=== PATIENT | male | born 1965 | race Caucasian/White ===

== ENCOUNTER 2018-09-05 06:19 | Day surgery (SDC) | payer OTHER, SELFPAY ==
[2018-08-24 10:48] VITALS: BMI 30.2
[2018-09-05] VITALS (7 sets, daily range): BP systolic 109–135; BP diastolic 73–83; PULSE 70–95; RESP 12–16; TEMP 36.3–37.3; O2SAT 92–95; BMI 30.2
--- NOTE | 2018-09-05 | PATH_ITS ---
[facility] Accession Number: [id number] . 01 Material submitted: . hernia - HERNIA SAC AND CONTENTS . 02 Diagnosis: Hernia Sac, Biopsy: Consistent with hernia sac. MRV/09/07/2018 . 02 Electronically signed: . Alberta Watts MD, Pathologist NPI- [id number] . 01 Gross description: . Received in formalin, labeled hernia sac / contents, are multiple pieces of mishra-pink membranous and li-yellow fatty tissue (3.5 x 2.4 x 1.2 cm in aggregate). Backhoe Operator tissue submitted in cassette A1. ([id number]) /MRV . 02 Pathologist provided ICD-10: K45.8 . 02 CPT . 615955 Performed at: 01 [facility] [address] [id number] MD Jay Hebert MD Phone: [phone] Performed at: 02 [facility] [address] [place], [place] [id number] MD Alberta Watts MD Phone: [phone]
--- NOTE | 2018-09-05 07:27 | PM.PREOP ---
Pre-operative Note Interval Note History & Physical reviewed/Exam performed by Physician: Yes Changes to H&P: No
[2018-09-05] MEDS: CEFAZOLIN VIAL 3 GM in SODIUM CHLORIDE 0.9% 100 ML 200 ML IV (08:00)
--- NOTE | 2018-09-05 08:18 | SUR.OPER ---
Supine on padded OR bed, head on pillow, arms secured on padded arm boards at <90 degrees abduction, legs uncrossed, safety belt at thigh, tape over blanket over lower legs.
[2018-09-05] MEDS: BUPIVACAINE 0.25% W/ EPI 30 ML VIAL INJ (08:33)
--- NOTE | 2018-09-05 11:05 | P.OP_ITS ---
Operative Date/Time/Diagnoses Date of procedure: 09/05/18 Time of procedure: 09:00 Pre-op diagnosis: Umbilical Hernia Post-op diagnosis: same Procedure & Clinicians Procedure: Umbilical Hernia repair with mesh Same procedure as scheduled: Yes Indications: 53yo M with a fat-containing umbilical hernia which causes him pain. He would like it repaired and understands and all risks, benefits, and alternatives. Surgeon: Vanessa Tabler Click Yes if Unassisted: Yes Anesthesia Type: General Operative Notes Findings: fat containing umbilical hernia, defect 2cm Closure Type: primary Specimen(s): other (hernia sac and contents) Estimated Blood Loss (mL): 5 Procedure in detail: The patient was taken to the operating room and placed on the operating table in supine position then induced to an acceptable level of anesthesia. The abdomen was prepped and draped in usual sterile fashion. Using a 15 blade scalpel, an approximately 2cm incision was made just below the umbilicus. This was taken down through the subcutaneous tissue using electrocautery. The hernia sac was identified. It was opened and the peritoneal cavity was identified as well. The hernia was opened widely and then transected along its attachments to the fascia. The fascial defect measured approximately 2cm. The posterior aspect of the fascia was cleaned circumferentially. And all omental adhesions were taken down.The anterior aspect of the fascia was then cleaned approximately 2 cm in all directions. A 4.2cm x 4.2cm piece of V-patch mesh was chosen. The mesh was placed in an underlay fashion and secured to the fascia in an interrupted fashion using 0-Ethibond interrupted sutures. Each suture was marked with a hemostat. There was noted to be no tension on the repair, and there was no redundancy of the mesh. Once all sutures were placed and mesh placement was noted to be satisfactory, the sutures were then tied. The fascia was then closed over the mesh using 0-Ethibond sutures. Subcutaneous tissues were irrigated and dried. Hemostasis was obtained using electrocautery. The umbilical stalk was tacked down to the level of the fascia using a 3-0 Vicryl suture. The deep subcutaneous tissues were closed using 3-0 Vicryl in an interrupted fashion. The skin was then closed using 4-0 monocryl in a running fashion. The abdomen was cleaned and dried. Steri strips and a pressure dressing were placed over the incision. The patient was awakened and taken to the postanesthesia care uni t in stable condition. All counts were correct at the end of the procedure. Complications: none Condition: stable Disposition: PACU Plan for aftercare: home with
== END 2018-09-05 09:41 | disposition home or self-care (01) ==
PROVIDERS: Family Provider Family Medicine; PCP Family Medicine; Visit Provider Surgery
PROC: (CPT 49587; principal; 2018-09-05 07:45)
DX: K42.0 Umbilical hernia with obstruction, without gangrene (principal); K66.0 Peritoneal adhesions (postprocedural) (postinfection)
CPT/HCPCS: 49587; C1781; J0330; J0690; J1100; J2250; J2405; J2704; J3010

== ENCOUNTER → 2019-12-31 11:09 | Outpatient (CLI) | payer OTHER, SELFPAY ==
--- NOTE | 2019-12-31 11:10 | DI.RAD.S_ITS ---
PROCEDURE: XR FOOT LT MIN 3V INDICATIONS: LEFT foot injury TECHNIQUE: 3 views of the foot were acquired. COMPARISON: None. FINDINGS: Bones: There is fracture involving the 5th proximal phalanx of uncertain chronicity. No dislocations. No suspicious bony lesions. Xsvc-jy-bssalgyf degenerative joint disease at the 1st metatarsophalangeal joint and multiple interphalangeal joints. There is lucency at the base of the 5th proximal phalanx. Soft tissues: No tibiotalar joint effusion. Achilles tendon appears normal. IMPRESSION: 1. Fracture involving the 5th proximal phalanx of uncertain chronicity. 2. Ncax-eb-wrbrncpb degenerative joint disease. Dictated by: Christina Shepard M.D. on 12/31/2019 at 17:46 Approved by: Christina Shepard M.D. on 12/31/2019 at 17:49
== END ==
PROVIDERS: Family Provider Family Medicine; PCP Family Medicine; Referring Provider Family Medicine; Visit Provider Family Medicine
DX: S92.512A Displaced fracture of proximal phalanx of left lesser toe(s), initial encounter for closed fracture (principal); M19.072 Primary osteoarthritis, left ankle and foot; X58.XXXA Exposure to other specified factors, initial encounter
CPT/HCPCS: 73630

== ENCOUNTER → 2020-03-26 10:43 | Outpatient (CLI) | payer OTHER, SELFPAY ==
[2020-03-26 12:23] LABS: Add Manual Diff / Slide Review NO; Basophils Absolute Auto 100 /uL (0-100); Basophils Percent Auto 0.7 % (0-2); Eosinophils Absolute Auto 100 /uL (0-450); Eosinophils Percent Auto 1.6 % (2-4); Hematocrit 38.4 % (41-53); Hemoglobin 13.7 g/dL (13.5-17.5); Lymphocytes Absolute Auto 1400 /uL (1100-4500); Lymphocytes Percent Auto 14.8 % (25-40); Mean Corpuscular HGB Conc 35.7 % (30-36); Mean Corpuscular Hemoglobin 33.7 PG (26-34); Mean Corpuscular Volume 94.4 fL (80-100); Monocytes Absolute Auto 1000 /uL (0-900); Monocytes Percent Auto 11.1 % (3-14); Neutrophils Absolute Auto 6700 /uL (1500-7000); Neutrophils Percent Auto 71.8 % (50-75); Platelet Count 200 X10^3/uL (150-400); Red Blood Cell Count 4.06 X10^6/uL (4.5-5.9); Red Cell Distribution Width 13.9 % (11.6-14.8); White Blood Cell Count 9.4 X10^3/uL (4.5-11.0)
[2020-03-26 12:35] LABS: Alanine Aminotransferase 180 IU/L (<50); Albumin 4.7 g/dL (3.5-5.0); Albumin Globulin Ratio 1.2 (1.0-2.8); Alkaline Phosphatase 72 U/L (38-126); Aspartate Aminotransferase 218 IU/L (17-59); BUN Creatinine Ratio 16.8 (6-22); Bilirubin Total 1.3 mg/dL (0.2-1.3); Blood Urea Nitrogen 21 mg/dL (9-20); Calcium 9.7 mg/dL (8.4-10.2); Carbon Dioxide 25 mmol/L (22-32); Chloride 94 mmol/L (98-107); Cholesterol 167 mg/dL (140-199); Estimated Glomerular Filt Rate 59.7 mL/min (>60); Glucose 89 mg/dL (70-100); HDL Cholesterol 51 mg/dL (40-60); HEMOLYSIS < 15 (0-50); LDL Cholesterol Calculated 91 mg/dL (<100); Potassium 3.6 mmol/L (3.4-5.1); Sodium 131 mmol/L (137-145); Total Protein 8.7 g/dL (6.3-8.2); Triglycerides 125 mg/dL (35-150)
[2020-03-26 13:30] LABS: TSH w/ Reflex to FT4 2.49 uIU/mL (0.47-4.68)
== END ==
PROVIDERS: Family Provider Family Medicine; PCP Family Medicine; Referring Provider Family Medicine; Visit Provider Family Medicine
DX: I10 Essential (primary) hypertension (principal); M10.9 Gout, unspecified
CPT/HCPCS: 36415; 80053; 80061; 84443; 85025

== ENCOUNTER → 2020-05-15 10:50 | Outpatient (CLI) | payer OTHER, SELFPAY ==
[2020-05-15 12:58] LABS: Alanine Aminotransferase 25 IU/L (<50); Albumin 4.3 g/dL (3.5-5.0); Albumin Globulin Ratio 1.3 (1.0-2.8); Alkaline Phosphatase 87 U/L (38-126); Aspartate Aminotransferase 30 IU/L (17-59); Bilirubin Total 0.9 mg/dL (0.2-1.3); Bilirubin Unconjugated 0.8 mg/dL (0.0-1.1); Globulin 3.4 g/dL (1.7-4.1); HEMOLYSIS < 15 (0-50); Total Protein 7.7 g/dL (6.3-8.2)
== END ==
PROVIDERS: Family Provider Family Medicine; PCP Family Medicine; Referring Provider Family Medicine; Visit Provider Family Medicine
DX: R79.89 Other specified abnormal findings of blood chemistry (principal)
CPT/HCPCS: 36415; 80076